=== PATIENT | male | born 1955 | race African-American/Black ===

== ENCOUNTER 2016-09-04 10:33 | Emergency (ER) | payer BC ==
[~2016-09-04] VITALS: Ht 175.3 cm; Wt 70.3 kg
[~2016-09-04 10:33] MED LIST: AMOX1TAB61 PO
[2016-09-04] MEDS: TETRACAINE 0.5% OPHTH SOLUTION 4ML BOTTLE. OS ONE ×2 (10:54→12:24)
[2016-09-04] MEDS: FLUORESCEIN OPHTH TEST STRIP. OS ONE ×2 (10:54→12:24)
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
[2016-09-04 12:06] VITALS: BP 133/70
== END 2016-09-04 12:19 | disposition home or self-care (01) ==
LOC: ER 10:33
DX: H40.9 Unspecified glaucoma (principal); M10.9 Gout, unspecified; H26.9 Unspecified cataract; H54.8 Legal blindness, as defined in USA; I25.2 Old myocardial infarction; F12.10 Cannabis abuse, uncomplicated
CPT/HCPCS: 99282

== ENCOUNTER 2017-12-21 09:07 | Emergency (ER) | payer BC, OTHER ==
[~2017-12-21] VITALS: Ht 175.3 cm; Wt 70.3 kg
[2017-12-21] MEDS ORDERED: ORPHENADRINE CITRATE 60 MG/2 ML VIAL. IM ONE (10:15)
[2017-12-21] MEDS ORDERED: KETOROLAC 15 MG/ML VIAL. IM ONE (10:15)
[2017-12-21] MEDS ORDERED: ORPH100T PO (10:21)
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
[2017-12-21 10:55] VITALS: BP 152/85
== END 2017-12-21 11:00 | disposition home or self-care (01) ==
LOC: ER 09:07
DX: S16.1XXA Strain of muscle, fascia and tendon at neck level, initial encounter (principal); X58.XXXA Exposure to other specified factors, initial encounter; Y93.01 Activity, walking, marching and hiking; Y92.89 Other specified places as the place of occurrence of the external cause; Y99.8 Other external cause status
CPT/HCPCS: 96372; 99284; J1885; J2360

== ENCOUNTER 2020-04-29 11:20 | Emergency (ER) | payer MEDICARE, OTHER ==
[~2020-04-29] VITALS: Ht 175.3 cm; Wt 70.5 kg
[~2020-04-29 11:20] MED LIST changes: +ORPH100T PO
[2020-04-29 12:46] VITALS: BP 111/82
--- NOTE | 2020-04-29 12:55 | RAD ---
EXAM: Right knee, 3 views. HISTORY: Pain and swelling. COMPARISON: 06/12/2014 FINDINGS: 3 views of the right knee are obtained. There is lateral compartment joint space narrowing and medial and lateral compartment spurring. There is medial and lateral compartment chondrocalcinosi s. There is a small joint effusion. There is minimal enthesopathy along the superior patella. IMPRESSION: 1. Mild lateral compartment predominant osteoarthritis of the right knee with chondrocalcinosis. 2. Small right knee effusion. Electronically signed by: Joslyn Anne MD (04/29/2020 12:53 PM) [id number]
[2020-04-29] MEDS ORDERED: NAPR-682 PO (13:20)
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
== END 2020-04-29 13:58 | disposition home or self-care (01) ==
LOC: ER 11:20
DX: M17.11 Unilateral primary osteoarthritis, right knee (principal); R60.0 Localized edema; H40.9 Unspecified glaucoma; I51.9 Heart disease, unspecified; F17.200 Nicotine dependence, unspecified, uncomplicated; F12.90 Cannabis use, unspecified, uncomplicated; Z98.890 Other specified postprocedural states
CPT/HCPCS: 73562; 99283